=== PATIENT | male | born 1950 | race African-American/Black ===

== ENCOUNTER → 2019-10-22 | Outpatient (CLI) | payer OTHER ==
[~2019-10-22] VITALS: Ht 182.9 cm; Wt 99.8 kg
[~2019-10-22] MED LIST: AMLODIPINE BESY10 MG PO; ASPIR 8181 M1 PO; DIABETIC MED PO; MULTI VITAMIN1 EACH PO; [UNRECOGNIZED DRUG - REMARK]
--- NOTE | ~2019-10-22 | EKG ---
[facility] [place] [address] ELECTROCARDIOGRAM REPORT Name: JAMISONLUCY [id number]: 10/22/19 Attend Phys: Miguelangel Sutton MD Discharge: Date of : 46 Report #: [id number] THIS REPORT FOR: cc: GELACIO - Gabrielle family physician/PCP GELACIO - Gabrielle family physician/PCP Pradip Moseley MD ~ THIS REPORT FOR: //name// [facility] Test Date: 2019-10-22 Test Time: 07:50:48 Pat Name: LUCY SWIFT Department: Room: Gender: Accounts Payable Technician: SAYRA : 1950 Requested By: Shanae Isabel Order Number: [id number] MD: Measurements Intervals [place] Rate: 88 P: 47 IA: 161 QRS: -35 QRSD: 104 T: 35 QT: 390 QTc: 472 Interpretive Statements Sinus rhythm Left axis deviation Borderline low voltage, extremity leads No previous ECG available for comparison [email or web address] By: 0750 0750 Epiphany EpiphanyMD /EPI
--- NOTE | 2019-10-23 16:07 | PATH ---
[facility] [place] [address] PATHOLOGY RPT PROCEDURE Name: LUCY CHRISTOPHER Room #: REG LUDWIG Corn[place].#: [id number] Admission: 10/22/19 Date of : 46 Discharge: Report #: [id number] Path Case #: [id number] [facility] Accession Number: [id number] . 01 Material submitted: . PART A: stomach - BIOPSY OF GASTRITIS TO R/O H. PYLORI PART B: colon - POLYP AT MID TRANSVERSE COLON. Modifiers: mid, transverse . 01 Clinical history: . Pre-OP DX: Dysphagia and reflux Post-OP DX: Esophageal rings, hiatal hernia, esophagitis, duodenitis, gastritis, colon polyp, diverticulosis, hemorrhoids . 02 Diagnosis: A. Gastric mucosa, gastritis rule out H. pylori, endoscopic biopsy: - Mild reactive gastropathy. - Negative for intestinal metaplasia or atrophy. - Negative for Helicobacter pylori (properly controlled immunohistochemical stain performed). . B. Polyp, at mid transverse colon, endoscopic biopsy: - Tubular adenoma. - Negative for high grade dysplasia. (IUV/db; 10/23/2019) LBQ 10/23/2019 1113 Local . 02 Electronically signed: . Nakita Bergman MD, Pathologist NPI- [id number] . 01 Gross description: . A. Received in formalin labeled "Shana Christopherfarzana, BX of gastritis to rule out H. pylori," are 6 segments of lopez soft tissue measuring 1.0 x 0.9 x 0.2 cm in aggregate dimensions and ranging from 0.3 to 0.5 cm in maximum dimension. The specimen is submitted entirely in cassette A1. . B. Received in formalin labeled "Lucy Christopher, polyp at mid-transverse colon," are 4 segments of lopez soft tissue measuring 0.9 x 0.8 x 0.3 cm in aggregate dimensions and ranging from 0.3 to 0.6 cm in maximum dimension. The specimen is submitted entirely in cassette B1. (TSD; 10/22/2019) TOB/TOB 10/22/2019 1801 Local . 02 Pathologist provided ICD-10: K31.9, D12.3 . 02 CPT . [place] [address] PATHOLOGY RPT PROCEDURE Name: JAMISONWESTONJIMBO Room #: REG LUDWIG [place]#: [id number] Admission: 10/22/19 Date of : 46 Discharge: Report #: [id number] Path Case #: [id number] Specimen Comment: A courtesy copy of this report has been sent to [phone] Specimen Comment: Report sent to Performed at: [address], [place] [id number] MD Be Hughes MD Phone: [phone] Performed at: [address] [id number] MD Nakita Bergman MD Phone: [phone]
--- NOTE | 2019-10-26 12:14 | P ---
[facility] [place] [address] PROCEDURE REPORT Name: LUCY SWIFT [facility] [id number] Admission: 10/22/19 Attend Phys: Miguelangel Sutton MD Discharge: Date of : 46 Report #: [id number] THIS REPORT FOR: //name// CC: Darshan Braun DO [facility] physician/PCP Miguelangel Sutton DATE OF SERVICE: 10/22/2019 BRIEF HISTORY: The patient is a 69-year-old male with a recent onset of solid food dysphagia. He reports that he has trouble swallowing, both solids and liquids. He also reports he does take baking soda several times weekly for heartburn type symptoms. PREOPERATIVE DIAGNOSIS: Reflux symptoms and dysphagia. POSTOPERATIVE DIAGNOSES: 1. Erosive antral gastritis. 2. Patchy bulbar duodenitis. 3. Grade 1 erosive esophagitis. 4. A 6 cm sliding type hiatus hernia. 5. Proximal esophageal ring. 6. Distal Schatzki ring. MEDICATIONS: Deep sedation with propofol per anesthesia. SPECIMEN: Biopsies of gastritis. ESTIMATED BLOOD LOSS: 3 mL. PROCEDURE: EGD with biopsy and Sousa dilation. FINDINGS: Prior to propofol sedation, procedure of upper endoscopy was discussed with the patient as well as potential risks and its complications. He indicates he understands and desires to proceed. DESCRIPTION OF PROCEDURE: With the patient in left lateral decubitus position, the Olympus video endoscope was inserted in the cervical esophagus under direct vision without difficulty. As we passed through the upper esophageal sphincter very transiently a mild benign appearing ring was seen. There were no ulcers, erosions or mass lesions. Scope was advanced through the length of the esophagus. It was noted to be unremarkable until the GE junction was reached and mild Schatzki's ring was seen. A couple of erosions were seen at the squamocolumnar junction as well. There was no evidence of Junior's mucosa. The scope was advanced in the stomach, was examined on end view as well as retroflexed views. He was noted to have a 6-7 cm sliding type hiatus hernia. [facility] [address] [place] [address] PROCEDURE REPORT Name: LUCY SWIFT Room #: REG LUDWIG [place]#: [id number] Admission: 10/22/19 Attend Phys: Miguelangel Sutton MD Discharge: Date of : 46 Report #: [id number] The mucosa of the hernia was unremarkable. The scope was advanced into the distal stomach, which was also examined on end view as well as retroflexed views. There was gastritis with scattered erosions, but no ulcers were seen. Upon retroflexion, no mass lesions were seen. The pylorus was normal. Exam of duodenal bulb revealed patchy bulbar duodenitis without ulcer. Third portion of duodenum was unremarkable. At that point, the scope was slowly withdrawn and careful circumferential views confirmed the above findings. Biopsy was taken to the gastritis. The patient tolerated the procedure well. He was subsequently dilated with passage of a 50-[place] Sousa dilator without resistance. CONDITION OF THE PATIENT UPON DISCHARGE: Following procedure, the patient drowsy and prepared for colonoscopy. INSTRUCTIONS TO THE PATIENT AND FAMILY AT THE TIME OF DISCHARGE: We will follow up on biopsies obtained today. He does have evidence of erosive changes of the esophagus and has reflux symptoms. We will place him on pantoprazole 40 mg daily and return for followup in the office in 6 weeks. If symptoms do not improve, repair of his hiatus hernia may be needed. He may return on an as needed basis for dilation of his esophageal rings. <ELECTRONICALLY SIGNED> By: Miguelangel Sutton MD 10/26/19 1214 0819 0941 Miguelangel Sutton MD /nt
--- NOTE | 2019-10-26 12:14 | P ---
[facility] [place] [address] PROCEDURE REPORT Name: LUCY SWIFT Room #: REG [facility]#: [id number] Admission: 10/22/19 Attend Phys: Miguelangel Sutton MD Discharge: Date of : 46 Report #: [id number] THIS REPORT FOR: //name// CC: Darshan Braun DO [facility] physician/PCP Miguelangel Sutton DATE OF SERVICE: 10/22/2019 BRIEF HISTORY: The patient is a 69-year-old male with a history of colon polyps for high risk screening colonoscopy. POSTOPERATIVE DIAGNOSES: 1. Diminutive polyp, mid transverse colon. 2. Pandiverticulosis coli. 3. Internal hemorrhoids. MEDICATIONS: Deep sedation with propofol per anesthesia. SPECIMEN: Mid transverse colon polyp. ESTIMATED BLOOD LOSS: 3 mL. PROCEDURE: Colonoscopy to cecum and ileocecal valve with biopsy. FINDINGS: Prior to propofol sedation, procedure of colonoscopy discussed with the patient as well as potential risks and its complications. He indicates he understands and desires to proceed. DESCRIPTION OF PROCEDURE: With the patient in left lateral decubitus position, digital examination was completed, which revealed no abnormalities. Subsequently, the Olympus video colonoscope was introduced in the rectum, advanced under direct vision to the cecum. Done with minimal difficulty. The cecum was identified by the ileocecal valve and the appendiceal orifice. At that point, the scope was slowly withdrawn and careful circumferential views were obtained. Upon slow withdrawal of the scope, the prep was mostly good, but there were some areas with some residual material which had to be irrigated and suctioned away. Reasonably good views were obtained of much of the colon. The mucosa was within normal limits, normal vascular pattern, normal light reflex. As we withdrew the scope, he was noted to have diverticular disease throughout the entire colon. There was no endoscopic evidence of diverticulitis. The mucosa otherwise was within normal limits until we reached the mid transverse colon, at which point a diminutive polyp was seen and removed with biopsy forceps. The scope was further withdrawn and no additional neoplastic lesions were seen. Again, he continued to have diverticula throughout the entire colon. The scope was withdrawn in the rectum, no abnormalities were seen. However, [facility] [address] [place] [address] PROCEDURE REPORT Name: LUCY SWIFT Room #: REG [facility] Cornelio.#: [id number] Admission: 10/22/19 Attend Phys: Miguelangel Sutton MD Discharge: Date of : 46 Report #: [id number] upon retroflexion, internal hemorrhoids were seen. Scope was withdrawn. The patient tolerated the procedure well. CONDITION OF THE PATIENT UPON DISCHARGE: Following procedure, the patient was drowsy, arousable, conversant and will be discharged home when fully ambulatory. INSTRUCTIONS TO THE PATIENT AND FAMILY AT THE TIME OF DISCHARGE: We will follow up on the pathology. However, at this point given the fact he has had polyps in the past would suggest return in 5 years for high risk screening colonoscopy. He will otherwise return to the care of Dr. Darshan Braun. Last colonoscopy was at least 5 years ago. Withdrawal time from the cecum was 13 minutes 2 seconds. <ELECTRONICALLY SIGNED> By: Miguelangel Sutton MD 10/26/19 1214 0847 1003 Miguelangel Sutton MD /nt
== END | disposition home or self-care (01) ==
LOC: EDBD → GI 06:45
DX: Z12.11 Encounter for screening for malignant neoplasm of colon (principal); Z86.010 Personal history of colon polyps; D12.3 Benign neoplasm of transverse colon; K57.30 Diverticulosis of large intestine without perforation or abscess without bleeding; K64.8 Other hemorrhoids; K31.9 Disease of stomach and duodenum, unspecified; K29.70 Gastritis, unspecified, without bleeding; K29.80 Duodenitis without bleeding; K22.10 Ulcer of esophagus without bleeding; K44.9 Diaphragmatic hernia without obstruction or gangrene; K22.2 Esophageal obstruction; I10 Essential (primary) hypertension; E11.9 Type 2 diabetes mellitus without complications; G47.30 Sleep apnea, unspecified; F17.210 Nicotine dependence, cigarettes, uncomplicated; Z98.890 Other specified postprocedural states; Z79.899 Other long term (current) drug therapy; Z85.46 Personal history of malignant neoplasm of prostate; Z90.49 Acquired absence of other specified parts of digestive tract; Z96.653 Presence of artificial knee joint, bilateral
CPT/HCPCS: 62110; 62900

== ENCOUNTER → 2021-09-21 | Outpatient (CLI) | payer OTHER | LOC: SJCVC 13:14 | PROVIDERS: ATTEND Internal Medicine Cardiovascular Disease | DX: R94.31 Abnormal electrocardiogram [ECG] [EKG] (principal); I47.1 Supraventricular tachycardia; R55 Syncope and collapse; I48.0 Paroxysmal atrial fibrillation; I44.2 Atrioventricular block, complete; I49.5 Sick sinus syndrome; I12.9 Hypertensive chronic kidney disease with stage 1 through stage 4 chronic kidney disease, or unspecified chronic kidney disease; E11.42 Type 2 diabetes mellitus with diabetic polyneuropathy; N18.32 Chronic kidney disease, stage 3b; D64.9 Anemia, unspecified; J44.9 Chronic obstructive pulmonary disease, unspecified; K25.9 Gastric ulcer, unspecified as acute or chronic, without hemorrhage or perforation; E87.1 Hypo-osmolality and hyponatremia; E78.2 Mixed hyperlipidemia; G47.33 Obstructive sleep apnea (adult) (pediatric); I73.9 Peripheral vascular disease, unspecified; D50.9 Iron deficiency anemia, unspecified; M51.36 Other intervertebral disc degeneration, lumbar region; M47.816 Spondylosis without myelopathy or radiculopathy, lumbar region; N40.0 Benign prostatic hyperplasia without lower urinary tract symptoms; M17.0 Bilateral primary osteoarthritis of knee; I26.99 Other pulmonary embolism without acute cor pulmonale; Z79.82 Long term (current) use of aspirin; Z79.899 Other long term (current) drug therapy; Z87.891 Personal history of nicotine dependence ==

== ENCOUNTER → 2021-10-16 | Outpatient (CLI) | payer OTHER ==
[~2021-10-16] VITALS: Ht 182.9 cm; Wt 100.0 kg
[~2021-10-16] MED LIST changes: +AMARYL2 M1 PO; +AMOXICILLIN 50500 MG PO; +COZAAR 25 MG TA25 M1 PO; +FLOMAX0.4 MG PO; +IPRAT-ALBUT 0.5-3 ML INH; +TRIAMTERENE/HCT1 CA1 PO; +VENTOLIN HFA 1818 GM INH
[2021-10-16 10:24] VITALS: BP 120/86
[2021-10-16 10:34] LABS: ABSOLUTE NEUTROPHILS 3.3 thou/uL (1.4-8.2); BASOPHILS 0.7 % (0.0-2.0); EOSINOPHILS 6.4 % (0.0-3.0); HEMATOCRIT 41.2 % (42.0-52.0); HEMOGLOBIN 13.5 gm/dL (14.0-18.0); LYMPHOCYTES 16.8 % (24.0-44.0); MCH 24.1 pg (26.0-34.0); MCHC 32.8 g/dL (28.0-37.0); MCV 73.4 fL (80.0-100.0); PLATELET COUNT 251 thou/uL (150-400); POLYS 62.1 % (36.0-66.0); RBC 5.61 mil/uL (4.50-6.00); RDW 15.7 % (10.5-14.5); WBC 5.3 thou/uL (4.0-11.0)
[2021-10-16 10:46] LABS: CALCIUM 9.2 mg/dL (8.5-10.1); CREATININE 1.6 mg/dL (0.7-1.3); POTASSIUM 3.6 mmol/L (3.5-5.1)
[2021-10-16 10:50] LABS: APTT 34.4 Seconds (24.5-32.8); INR 1.16; PROTIME 12.6 Seconds (10.5-12.1)
[2021-10-16 10:51] LABS: ALBUMIN 3.5 g/dL (3.4-5.0); TOTAL BILIRUBIN 0.6 mg/dL (0.2-1.0); TOTAL PROTEIN 7.4 g/dL (6.4-8.2)
--- NOTE | 2021-10-16 14:48 | NUR ---
PACEMAKER PROCEDURE CANCELLED TODAY BECAUSE OF RT LOWER LEG WOUND ULCER WITH FOUL SMELLING DRAINAGE. WOUND CULTURED AND DR. CHÁVEZ SEES PT. WOUND REDRESSED AND APPOINTMENT WITH WOUND CARE SET UP FOR Saturday10/19/21
== END | disposition home or self-care (01) ==
LOC: CATH 08:35
PROVIDERS: ATTEND Internal Medicine Cardiovascular Disease
DX: I47.2 Ventricular tachycardia (principal); Z53.8 Procedure and treatment not carried out for other reasons; I47.1 Supraventricular tachycardia; R55 Syncope and collapse; I48.91 Unspecified atrial fibrillation; I10 Essential (primary) hypertension; E11.9 Type 2 diabetes mellitus without complications; K21.9 Gastro-esophageal reflux disease without esophagitis; J44.9 Chronic obstructive pulmonary disease, unspecified; Z98.890 Other specified postprocedural states; Z79.899 Other long term (current) drug therapy; Z20.822 Contact with and (suspected) exposure to COVID-19; Z85.46 Personal history of malignant neoplasm of prostate

== ENCOUNTER → 2021-10-19 | Outpatient (CLI) | payer OTHER | LOC: HYPER 08:43 | PROVIDERS: ATTEND Emergency Medicine | DX: S81.801A Unspecified open wound, right lower leg, initial encounter (principal); S80.921A Unspecified superficial injury of right lower leg, initial encounter; L03.115 Cellulitis of right lower limb; L08.9 Local infection of the skin and subcutaneous tissue, unspecified; E11.51 Type 2 diabetes mellitus with diabetic peripheral angiopathy without gangrene; E11.40 Type 2 diabetes mellitus with diabetic neuropathy, unspecified; E11.22 Type 2 diabetes mellitus with diabetic chronic kidney disease; I12.9 Hypertensive chronic kidney disease with stage 1 through stage 4 chronic kidney disease, or unspecified chronic kidney disease; N18.32 Chronic kidney disease, stage 3b; E11.65 Type 2 diabetes mellitus with hyperglycemia; E78.5 Hyperlipidemia, unspecified; G47.33 Obstructive sleep apnea (adult) (pediatric); J43.9 Emphysema, unspecified; M17.0 Bilateral primary osteoarthritis of knee; Z87.891 Personal history of nicotine dependence; Z90.49 Acquired absence of other specified parts of digestive tract; Z96.659 Presence of unspecified artificial knee joint; Z85.46 Personal history of malignant neoplasm of prostate; X58.XXXA Exposure to other specified factors, initial encounter; Y93.89 Activity, other specified; Y92.89 Other specified places as the place of occurrence of the external cause; Y99.8 Other external cause status ==

== ENCOUNTER → 2021-10-26 | Outpatient (CLI) | payer OTHER | LOC: HYPER 10:38 | PROVIDERS: ATTEND Emergency Medicine | DX: S81.801D Unspecified open wound, right lower leg, subsequent encounter (principal); S80.921D Unspecified superficial injury of right lower leg, subsequent encounter; L03.115 Cellulitis of right lower limb; L08.9 Local infection of the skin and subcutaneous tissue, unspecified; E11.51 Type 2 diabetes mellitus with diabetic peripheral angiopathy without gangrene; E11.40 Type 2 diabetes mellitus with diabetic neuropathy, unspecified; E11.22 Type 2 diabetes mellitus with diabetic chronic kidney disease; I12.9 Hypertensive chronic kidney disease with stage 1 through stage 4 chronic kidney disease, or unspecified chronic kidney disease; N18.32 Chronic kidney disease, stage 3b; E11.65 Type 2 diabetes mellitus with hyperglycemia; E78.5 Hyperlipidemia, unspecified; G47.33 Obstructive sleep apnea (adult) (pediatric); J43.9 Emphysema, unspecified; M17.0 Bilateral primary osteoarthritis of knee; Z87.891 Personal history of nicotine dependence; Z90.49 Acquired absence of other specified parts of digestive tract; Z96.659 Presence of unspecified artificial knee joint; Z85.46 Personal history of malignant neoplasm of prostate; X58.XXXD Exposure to other specified factors, subsequent encounter ==

== ENCOUNTER → 2021-11-02 | Outpatient (CLI) | payer OTHER | LOC: HYPER 09:19 | PROVIDERS: ATTEND Emergency Medicine | DX: S81.801D Unspecified open wound, right lower leg, subsequent encounter (principal); S80.921D Unspecified superficial injury of right lower leg, subsequent encounter; L03.115 Cellulitis of right lower limb; L08.9 Local infection of the skin and subcutaneous tissue, unspecified; E11.51 Type 2 diabetes mellitus with diabetic peripheral angiopathy without gangrene; E11.40 Type 2 diabetes mellitus with diabetic neuropathy, unspecified; E11.22 Type 2 diabetes mellitus with diabetic chronic kidney disease; I12.9 Hypertensive chronic kidney disease with stage 1 through stage 4 chronic kidney disease, or unspecified chronic kidney disease; N18.32 Chronic kidney disease, stage 3b; E11.65 Type 2 diabetes mellitus with hyperglycemia; E78.5 Hyperlipidemia, unspecified; G47.33 Obstructive sleep apnea (adult) (pediatric); J43.9 Emphysema, unspecified; M17.0 Bilateral primary osteoarthritis of knee; Z87.891 Personal history of nicotine dependence; Z90.49 Acquired absence of other specified parts of digestive tract; Z96.659 Presence of unspecified artificial knee joint; Z85.46 Personal history of malignant neoplasm of prostate; X58.XXXD Exposure to other specified factors, subsequent encounter ==

== ENCOUNTER → 2021-11-08 | Outpatient (CLI) | payer OTHER | LOC: HYPER 08:10 | PROVIDERS: ATTEND Emergency Medicine | DX: S81.801D Unspecified open wound, right lower leg, subsequent encounter (principal); S80.921D Unspecified superficial injury of right lower leg, subsequent encounter; L03.115 Cellulitis of right lower limb; L08.9 Local infection of the skin and subcutaneous tissue, unspecified; E11.51 Type 2 diabetes mellitus with diabetic peripheral angiopathy without gangrene; E11.40 Type 2 diabetes mellitus with diabetic neuropathy, unspecified; E11.22 Type 2 diabetes mellitus with diabetic chronic kidney disease; I12.9 Hypertensive chronic kidney disease with stage 1 through stage 4 chronic kidney disease, or unspecified chronic kidney disease; N18.32 Chronic kidney disease, stage 3b; E11.65 Type 2 diabetes mellitus with hyperglycemia; E78.5 Hyperlipidemia, unspecified; G47.33 Obstructive sleep apnea (adult) (pediatric); J43.9 Emphysema, unspecified; M17.0 Bilateral primary osteoarthritis of knee; Z87.891 Personal history of nicotine dependence; Z90.49 Acquired absence of other specified parts of digestive tract; Z96.659 Presence of unspecified artificial knee joint; Z85.46 Personal history of malignant neoplasm of prostate; X58.XXXD Exposure to other specified factors, subsequent encounter ==

== ENCOUNTER → 2021-11-15 | Outpatient (CLI) | payer OTHER | LOC: HYPER 08:13 | PROVIDERS: ATTEND Emergency Medicine | DX: S81.801D Unspecified open wound, right lower leg, subsequent encounter (principal); S80.921D Unspecified superficial injury of right lower leg, subsequent encounter; L03.115 Cellulitis of right lower limb; L08.9 Local infection of the skin and subcutaneous tissue, unspecified; E11.51 Type 2 diabetes mellitus with diabetic peripheral angiopathy without gangrene; E11.40 Type 2 diabetes mellitus with diabetic neuropathy, unspecified; E11.22 Type 2 diabetes mellitus with diabetic chronic kidney disease; I12.9 Hypertensive chronic kidney disease with stage 1 through stage 4 chronic kidney disease, or unspecified chronic kidney disease; N18.32 Chronic kidney disease, stage 3b; E11.65 Type 2 diabetes mellitus with hyperglycemia; E78.5 Hyperlipidemia, unspecified; G47.33 Obstructive sleep apnea (adult) (pediatric); J43.9 Emphysema, unspecified; M17.0 Bilateral primary osteoarthritis of knee; Z87.891 Personal history of nicotine dependence; Z90.49 Acquired absence of other specified parts of digestive tract; Z96.659 Presence of unspecified artificial knee joint; Z85.46 Personal history of malignant neoplasm of prostate; X58.XXXD Exposure to other specified factors, subsequent encounter ==

== ENCOUNTER → 2021-11-16 | Outpatient (CLI) | payer OTHER | LOC: SJCVC 13:50 | PROVIDERS: ATTEND Internal Medicine Cardiovascular Disease | DX: R94.31 Abnormal electrocardiogram [ECG] [EKG] (principal); I48.0 Paroxysmal atrial fibrillation; E11.22 Type 2 diabetes mellitus with diabetic chronic kidney disease; I12.9 Hypertensive chronic kidney disease with stage 1 through stage 4 chronic kidney disease, or unspecified chronic kidney disease; N18.32 Chronic kidney disease, stage 3b; E11.42 Type 2 diabetes mellitus with diabetic polyneuropathy; G47.33 Obstructive sleep apnea (adult) (pediatric); J44.9 Chronic obstructive pulmonary disease, unspecified; C61 Malignant neoplasm of prostate; F17.200 Nicotine dependence, unspecified, uncomplicated; I73.9 Peripheral vascular disease, unspecified; Z96.652 Presence of left artificial knee joint; Z96.651 Presence of right artificial knee joint; Z79.899 Other long term (current) drug therapy; Z79.84 Long term (current) use of oral hypoglycemic drugs; Z90.49 Acquired absence of other specified parts of digestive tract; Z98.890 Other specified postprocedural states ==